=== PATIENT | male | born 1965 | race Caucasian/White ===

== ENCOUNTER 2019-08-19 10:47 | Emergency (ER) | payer OTHER, SELFPAY ==
[2019-08-19 10:53] VITALS: BP 150/76; PULSE 76; RESP 20; TEMP 36.8; O2SAT 97
--- NOTE | 2019-08-19 11:02 | ED.URI ---
HPI - URI/Sore Throat General Chief Complaint: Upper Respiratory Infection Stated Complaint: head and chest congestion Time Seen by Provider: 08/19/19 11:02 Source: patient and RN notes reviewed History of Present Illness HPI Narrative: Patient is a 54-year-old male that presents the urgent care with complaints of head congestion and cough. Patient states that it started 5 days ago and he has been using Sudafed and NyQuil. Denies of any known fever productive cough. Denies of any shortness of breath or wheezing. No other acute complaints. No acute distress noted. Patient aware of the plan of care. Related Data Allergies Allergy/AdvReac Type Severity Reaction Status Date / Time No Known Allergies Allergy Unverified 08/19/19 11:04 Review of Systems Review of Systems: Narrative: CONSTITUTIONAL: Denies fever, chills, or sweats. EYES: Denies visual changes, redness, or discharge. ENT: Reports of rhinorrhea, nasal congestion, postnasal drainage CARDIOVASCULAR: Denies chest pain, palpitations, or edema. RESPIRATORY: Reports a mild intermittent cough without dyspnea GASTROINTESTINAL: Denies abdominal pain, nausea, vomiting, or diarrhea. GENITOURINARY: Denies dysuria or hematuria. SKIN: Denies rash or itching. MUSCULOSKELETAL: Denies back pain, joint pain, or myalgia. NEUROLOGIC: Denies headache, numbness, or weakness. All other systems reviewed are negative, except as documented in HPI. PMFSH Social History Social History Gender identity (if verbalized by the patient): Male Comments At the time of my signature, I reviewed and agree with the nursing past medical, surgical, social, and family history. There is no relevant family history pertinent to the patient complaint. Exam Narrative: Exam Narrative: GENERAL: This is a well-nourished, well-developed patient, in no apparent distress. HEAD: normocephalic, atraumatic. EYES: PERRL. Sclera clear/white. Vision is grossly intact. EARS: External ears normal, auditory canals clear and without drainage, TMs normal without perforation. Hearing grossly intact. NOSE: External nose normal with no obvious nasal discharge, nares without redness, clear rhinorrhea. THROAT: Mucous membranes moist, posterior pharynx clear. Moderate postnasal drainage NECK: Neck supple, non-tender without lymphadenopathy CARDIOVASCULAR: Regular rate and rhythm without murmurs, gallops, or rubs. RESPIRATORY: Clear to auscultation. Breath sounds equal bilaterally. No wheezes, rales, or rhonchi. SKIN: warm, intact with no suspicious lesions or rash, good texture and turgor. NEURO: awake, alert, and oriented to person, place and time. There were no obvious focal neurologic abnormalities. EXTREMITIES: No clubbing, cyanosis, or edema. Course Vital Signs Vital signs: Vital Signs Temperature 98.3 F 08/19/19 10:53 Pulse Rate 76 08/19/19 10:53 Respiratory Rate 20 08/19/19 10:53 Blood Pressure 150/76 H 08/19/19 10:53 Pulse Oximetry 97 08/19/19 10:53 Temperature 98.3 F 08/19/19 10:53 Pulse Rate 76 08/19/19 10:53 Respiratory Rate 20 08/19/19 10:53 Blood Pressure 150/76 H 08/19/19 10:53 Pulse Oximetry 97 08/19/19 10:53 Reviewed?patient is informed that they may have pre-hypertension or hypertension based on a blood pressure reading in the department. I recommend the patient call the primary care provider listed on their discharge instructions or a physician of their choice this week to arrange follow-up for further evaluation of possible pre-hypertension or hypertension. MDM - URI/Sore Throat MDM Narrative Medical decision making narrative: Educated the patient on upper respiratory virus versus bacterial sinusitis. At this time, symptoms are not considered to be bacterial and therefore he should treat viral symptoms with [id number] medication as needed. Advised the patient took use [id number] Claritin/Zyrtec daily in conjunction with Flonase nasal spray. Stop taking Sudaf
== END 2019-08-19 11:25 | disposition home or self-care (01) ==
PROVIDERS: Emergency Provider Nurse Practitioner Family
DX: J06.9 Acute upper respiratory infection, unspecified (principal); G47.30 Sleep apnea, unspecified
CPT/HCPCS: 99213; G0463

== ENCOUNTER 2020-01-14 16:14 | Emergency (ER) | payer OTHER, SELFPAY ==
[2020-01-14 16:28] VITALS: BP 174/81; PULSE 64; RESP 20; TEMP 36.8; O2SAT 98
--- NOTE | 2020-01-14 16:46 | ED.SKABFB ---
HPI - Skin/Abscess/Foreign Bdy General Chief complaint: Skin/Abscess/Foreign Body Stated complaint: Bite Time Seen by Provider: 01/14/20 16:51 Source: patient Mode of arrival: ambulatory Limitations: no limitations History of Present Illness HPI narrative: Darryn Stephenson is a 54 yo male with no PMH who [facility] with a insect bite lesion to the left lateral thigh, started 3 weeks ago, initially was more swollen and primarily pruritic, has not been tender, now is deep maroon and is larger in size Denies any allergies to medications; has not had this kind of reaction to an insect bite in the past Related Data Allergies Allergy/AdvReac Type Severity Reaction Status Date / Time No Known Allergies Allergy Verified 01/14/20 16:29 Review of Systems Review of Systems: Narrative: CONSTITUTIONAL: Denies fever, chills, sweats. EYES: Denies visual changes, redness, discharge. ENT: Denies rhinorrhea, congestion, sore throat, otalgia. CARDIOVASCULAR: Denies chest pain, palpitations, edema. RESPIRATORY: Denies dyspnea, wheezing, cough GASTROINTESTINAL: Denies abdominal pain, nausea, vomiting, diarrhea. GENITOURINARY: Denies dysuria, hematuria, abnormal discharge SKIN: Denies rash or itching. Lesion to left lateral thigh; pruritic NEUROLOGIC: Denies numbness, or focal weakness. PSYCHIATRIC: Denies anxiety or depression. [facility] Family History Family History Other Lymphoma Social History Social History (Updated 01/14/20 @ 16:54 by Savannah Alvarado CNP) Smoking status: Never smoker Alcohol intake: current Gender identity (if verbalized by the patient): Male Comments At time of signature, I agree with nursing past medical, surgical, social and family history. There is no relevant family history pertinent to the presenting complaint. Blood pressure is elevated probably due to the nature of the visit; follow-up with primary care physician Exam Narrative: Exam Narrative: GENERAL: This is a well-nourished, well-developed patient, in mild distress. HEAD: normocephalic, atraumatic. EYES: Sclera clear/white. Vision is grossly intact. EARS: External ears normal. Hearing grossly intact. NOSE: External nose normal without nasal discharge, nares without redness, no rhinorrhea. THROAT: Mucous membranes moist, NECK: Neck supple, CARDIOVASCULAR: Regular rate and rhythm without murmurs, gallops, or rubs. RESPIRATORY: Clear to auscultation. Breath sounds equal bilaterally. No wheezes, rales, or rhonchi. GASTROINTESTINAL: Abdomen soft, SKIN: warm, intact with 4 x 4 indurated maroon-colored lesion that is pruritic not tender NEURO: awake, alert, and oriented to person, place and time. There were no obvious focal neurologic abnormalities. Steady gait EXTREMITIES: Normal range of motion. BACK: Nontender without deformity Course Course Emergency Course: Discussed tick versus spider bite and nature of lesion-started doxycycline x 10 days Vital Signs Vital signs: Vital Signs Temperature 98.3 F 01/14/20 16:28 Pulse Rate 64 01/14/20 16:28 Respiratory Rate 20 01/14/20 16:28 Blood Pressure 174/81 H 01/14/20 16:28 Pulse Oximetry 98 01/14/20 16:28 Temperature 98.3 F 01/14/20 16:28 Pulse Rate 64 01/14/20 16:28 Respiratory Rate 20 01/14/20 16:28 Blood Pressure 174/81 H 01/14/20 16:28 Pulse Oximetry 98 01/14/20 16:28 MDM - Skin/Abscess/Foreign Bdy Differential Diagnosis Differential diagnosis: Likely urticaria, cellulitis, insect bites and other Discharge Plan Discharge Clinical Impression: Insect bites Qualifiers: Encounter type: initial encounter Site of insect bite: thigh Laterality: left Qualified Code(s): S70.362A - Insect bite (nonvenomous), left thigh, initial encounter Cellulitis Qualifiers: Site of cellulitis: extremity Site of cellulitis of extremity: lower extremity Laterality: left Qualified Code(s): L03.116 -
== END 2020-01-14 17:00 | disposition home or self-care (01) ==
PROVIDERS: Emergency Provider Nurse Practitioner; PCP Internal Medicine
DX: S70.362A Insect bite (nonvenomous), left thigh, initial encounter (principal); L03.116 Cellulitis of left lower limb; W57.XXXA Bitten or stung by nonvenomous insect and other nonvenomous arthropods, initial encounter
CPT/HCPCS: 99213; G0463

== ENCOUNTER 2020-06-24 16:51 | Emergency (ER) | payer OTHER, SELFPAY ==
[2020-06-24 17:07] VITALS: BP 173/89; PULSE 71; RESP 20; TEMP 36.6; O2SAT 99
--- NOTE | 2020-06-24 17:22 | ED.EXTPRO ---
HPI - Extremity Problem General Chief complaint: Skin/Abscess/Foreign Body Stated complaint: Hand Swelling Time Seen by Provider: 06/24/20 17:30 Source: patient and RN notes reviewed Mode of arrival: ambulatory Limitations: no limitations History of Present Illness HPI Narrative: 55-year-old male presents with concern for poison fritz on bilateral hands. Reports hand swelling, redness itchy rash. Reports he had exposure to poison fritz when he was pulling weeds and cutting brush 1 week ago. Reports symptoms have been present for approximately 1 week. Reports he tried [id number] poison fritz products with no relief. He denies decreased sensation, strength, range of motion in bilateral hands. He denies fever, nausea, vomiting, diarrhea, swollen lips, swollen tongue, difficulty breathing MD Complaint: extremity swelling Related Data Home Medications Medication Instructions Recorded Confirmed No Home Medications 06/24/20 06/24/20 Allergies Allergy/AdvReac Type Severity Reaction Status Date / Time poison fritz extract Allergy Severe Swelling Verified 06/24/20 17:28 Review of Systems Review of Systems: Narrative: CONSTITUTIONAL: Denies malaise, chills, sweats, or fever. EYES: Denies visual changes, redness, or discharge. ENT: Denies swollen lips, swollen tongue CARDIOVASCULAR: Denies chest pain, palpitations RESPIRATORY: Denies cough or dyspnea. GASTROINTESTINAL: Denies abdominal pain, nausea, vomiting, diarrhea SKIN: Reports red itchy rash, swelling on bilateral hands MUSCULOSKELETAL: Denies muscle skeletal pain NEUROLOGIC: Denies numbness, weakness. All systems reviewed & are unremarkable except as noted in HPI and below PMFSH Family History Family History Other Lymphoma Social History Social History (Updated 01/14/20 @ 16:54 by Savannah Alvarado CNP) Smoking status: Never smoker Alcohol intake: current Gender identity (if verbalized by the patient): Male Comments At time of signature, agree with nursing past medical, surgical, social and family history. There is no relevant family history pertinent to the presenting complaint Exam Narrative: Exam Narrative: GENERAL: Well-appearing, well-nourished, and in no acute distress. HEAD: Normocephalic EYES: PERRLA, conjunctivae clear NECK: Supple. CHEST: Speaks in full sentences. No respiratory distress. HEART: Regular rate and rhythm. Normal and equal peripheral pulses. EXTREMITIES: Bilateral hands and digits have normal strength and sensation. 5/5 strength with digit flexion, extension. Range of motion normal. No clubbing, cyanosis noted. Moderate generalized hand edema bilaterally. No tenderness. Skin intact. Normal digital cascade with flexion of fingers, median, ulnar and radial nerve intact. Normal sensation of each side of finger. Can perform 'okay' sign, 'cross over finger test of index and middle fingers' and 'thumbs up' sign. No scissoring. Normal thumb opposition. Good capillary refill and radial pulse. Distal capillary refill less than 3 seconds. SKIN: Warn, dry, intact, pink. Erythematous, scaly, scattered papular rash noted to dorsal aspect of bilateral hands and wrists NEURO: Alert and oriented x3. PSYCH: Normal mood and affect Course Course Emergency Course: Patient is aware of diagnosis, understands and agrees to treatment plan. Anticipatory guidance given. Patient agrees to follow-up as directed and is aware of reasons to seek care at the emergency department. Portions of this record may have been created with voice recognition software Vital Signs Vital signs: Reviewed. MDM - Extremity (Nontraumatic) MDM Narrative Medical decision making narrative: Does not appear at this time to be erythema multiforme, bullous, SJS, TEN; no evidence at this time to suggest RMSF, endocarditis or Lyme disease; patient looks well, nontoxic and is tolerating oral intake; no neurologic signs or symptoms; no head
== END 2020-06-24 17:42 | disposition home or self-care (01) ==
PROVIDERS: Emergency Provider Nurse Practitioner; PCP Internal Medicine
DX: L24.7 Irritant contact dermatitis due to plants, except food (principal); G47.30 Sleep apnea, unspecified
CPT/HCPCS: 99213; G0463

== ENCOUNTER 2022-03-25 10:30 | Emergency (ER) | payer OTHER, SELFPAY ==
[2022-03-25 10:45] VITALS: BP 158/80; PULSE 96; RESP 20; TEMP 37.1; O2SAT 100
--- NOTE | 2022-03-25 11:16 | ED.URI ---
HPI - URI/Sore Throat General Chief Complaint: Upper Respiratory Infection Stated Complaint: congestion cough mucus swollen throat Time Seen by Provider: 03/25/22 11:10 Source: patient Mode of arrival: ambulatory Limitations: no limitations History of Present Illness HPI Narrative: Mr. Stephenson is a 57-year-old male patient presenting to the clinic today with complaints of cough, congestion, and sore/swollen throat. He reports that this started on Tuesday. He denies any fever or chills. He denies any chest pain or shortness of breath. He denies any known sick contacts MD elicited complaint: cough, sore throat and nasal congestion Related Data Allergies Allergy/AdvReac Type Severity Reaction Status Date / Time poison frtiz extract Allergy Severe Swelling Verified 03/25/22 10:41 Review of Systems Review of Systems: Pertinent positives per HPI. Patient denies any fever, chills, rash, headache, visual changes, dizziness, shortness of breath, chest pain, palpitations, nausea, vomiting, diarrhea, constipation, abdominal pain, or any urinary issues. PMFSH Family History Family History Other Lymphoma Social History Social History (Updated 01/14/20 @ 16:54 by Savannah Alvarado, TECHNOLOGY IN[employer]ION [employer]IST) Smoking status: Never smoker Alcohol intake: current Gender identity (if verbalized by the patient): Male Comments At the time of my signature, I reviewed and agree with the nursing past medical, surgical, social, and family history. There is no relevant family history pertinent to the patient complaint. Exam Narrative: General: Well-developed, morbidly obese in no apparent distress Head: Normocephalic, atraumatic Eyes: Pupils equally round and reactive to light bilaterally, EOM intact, sclera and conjunctive clear, no discharge, lids normal Ears: TMs intact and clear, ear canals clear, no drainage, grossly hearing normal. Nose: Nares patent, thick clear nasal discharge, mild inflammation, no sinus tenderness. Mouth: Oral pharynx without lesions or masses, good dentition, MMM. Postnasal drip, uvula swelling Neck: Supple, trachea midline, no enlargement of anterior or posterior cervical nodes, no thyroid masses or goiter palpable. Cardio: Regular rate and rhythm, s1 and s2 normal, no murmur appreciated. Resp: Clear to auscultation bilaterally, no rhonchi, rales, wheezing or rubs Course Course Emergency Course: Portions of this record may have been created with voice recognition software. Level of Care: Express Care Visit Vital Signs Vital signs: Vital Signs Temperature 37.1 C 03/25/22 10:45 Pulse Rate 96 03/25/22 10:45 Respiratory Rate 20 03/25/22 10:45 Blood Pressure 158/80 H 03/25/22 10:45 Pulse Oximetry 100 03/25/22 10:45 Oxygen Delivery Room Air 03/25/22 10:45 Temperature 37.1 C 03/25/22 10:45 Pulse Rate 96 03/25/22 10:45 Respiratory Rate 20 03/25/22 10:45 Blood Pressure 158/80 H 03/25/22 10:45 Pulse Oximetry 100 03/25/22 10:45 Oxygen Delivery Room Air 03/25/22 10:45 Vital signs reviewed MDM - URI/Sore Throat MDM Narrative Medical decision making narrative: At the time of visit patient is resting comfortably on the exam table. He has uvula swelling with nasal congestion and postnasal drip. Strep screen was obtained and was negative for strep pharyngitis. Supportive measures were discussed with the patient he voiced understanding of discharge instructions. Prescription for prednisone was sent to the pharmacy. Differential Diagnosis Differential diagnosis: Likely upper respiratory infection, otitis media, sinusitis, viral infection, bronchitis, influenza, pharyngitis and other (COVID) Discharge Plan Discharge Clinical Impression: Acute upper respiratory infection, Uvular swelling Patient Disposition: Home, Self-Care Condition: Stable Instructions: Antibiotic Form, Upper Respiratory Infection (ED), Uvul
== END 2022-03-25 11:41 | disposition home or self-care (01) ==
PROVIDERS: Emergency Provider Nurse Practitioner Family; PCP Internal Medicine
DX: J06.9 Acute upper respiratory infection, unspecified (principal); K13.79 Other lesions of oral mucosa
CPT/HCPCS: 87081; 87880; 99213; G0463